=== PATIENT | female | born 1970 | race Caucasian/White ===

== ENCOUNTER 2016-11-24 13:11 | Emergency (ER) | payer OTHER ==
[~2016-11-24] VITALS: Ht 167.6 cm; Wt 68.2 kg
[~2016-11-24 13:11] MED LIST: ATRV10T PO; CITA20TA11 PO; LEVO100T6 PO
[2016-11-24 13:12] VITALS: BP 158/100; PULSE 61; RESP 16; O2SAT 100
--- NOTE | 2016-11-24 13:56 | DRSVH ---
PROCEDURE: X-RAY CHEST, TWO VIEWS ([id number]) INDICATIONS: arm tightness TECHNIQUE: 2 views of the chest were acquired. COMPARISON: None. FINDINGS: Surgical changes and devices: None. Lungs and pleura: No pleural effusions or pneumothorax. Lungs are clear. Mediastinum: Mediastinal contours are normal. Heart size is normal. Bones and chest wall: No suspicious bony abnormalities. Soft tissues appear unremarkable. IMPRESSION: No radiographic evidence of acute cardiopulmonary pathology. Dictated by: Mike Eaton M.D. on 11/24/2016 at 13:53 Approved by: Mike Eaton M.D. on 11/24/2016 at 13:54
[2016-11-24 14:17] LABS: BASOPHILS % (AUTO) 1.2 % (0-3); EOSINOPHILS % (AUTO) 2.5 % (0-5); MONOCYTES % (AUTO) 13.8 % (4-12); Mean Corpuscular Hemoglobin 32.7 pg (27.0-35.0); Mean Corpuscular Volume 94.8 fL (81-100); NEUTROPHILS % (AUTO) 46.3 % (40-74); Platelet Count 172 bil/L (150-400)
--- NOTE | 2016-11-24 14:28 | ED.REPORT ---
HPI-Chest Pain 40 and Over Date of Service Nov 24, 2016 ED Provider: Miguel Ángel Yoo DO A 46 year old female with a history of palpitations, hypothyroidism and loop recorder and a family history of [place] presents to the ED complaining of left arm tightness. The pt has a history of episodes of palpitations with heart rates up to about 160. She experienced an episode yesterday while running but was not especially concerned. However at approximately 10:00 this morning she noticed a tight, squeezing pressure in her left arm that lasted for two hours. This was accompanied by diaphoresis and occasional shortness of breath. The pt has previously undergone cardiac testing including negative stress echocardiogram in 2013 and negative echocardiogram in 2016. Nursing Notes Stated Complaint: LEFT ARM TIGHTNESS,HEART PALP Chief Complaint: Chest Pain Nursing Notes Reviewed: Yes Allergies: Coded Allergies: No Known Allergies (Unverified , 08/26/15) Scheduled Atorvastatin (Lipitor) 10 Mg Tab 10 MG PO DAILY Citalopram (Citalopram) 20 Mg Tablet 20 MG PO DAILY Levothyroxine (Levothyroxine) 100 Mcg Tablet 100 MCG PO DAILY General Time Seen by MD: 14:13 Chief Complaint Other (Left arm tightness) Hx Obtained From: Patient Arrived By: Walk-in Sudden in Onset?: Yes Onset Occurred: 1 - 4 hours ago Symptom Duration: Since onset Recent Healthcare: Recent doctor visit Similar Sx Previous: No Past Medical History Past Medical History Hypothyroidism Normal stress echo in 09/2012 Normal echo in 2016 Palpitations Past Surgical History None reported Family History Mother had 6 [place], hypertension, and heart disease Mother's first [place] at 38 years old Smoking History Former Smoker Social History Alcohol Use: 1-3 per day Other Social History: Local resident Ambulatory Status Independent Review of Systems Review of Systems Note: Left arm tightness Respiratory: Reports: Shortness of breath Cardiovascular: Reports: Palpitations GI: Denies: Abdominal pain, Vomiting Musculoskeletal: Denies: Back pain, Neck pain Skin: Reports Diaphoresis, Denies Rash Complete sys rev & neg: except as marked. Physical Exam Initial Vital Signs Vital Signs (First) Date Time Temp Pulse Resp B/P Pulse Ox O2 Delivery O2 Flow Rate FiO2 11/24/16 13:12 37 61 16 158/100 100 11/24/16 17:38 Room Air Initial VS: Reviewed General/Constitutional: Awake, Alert Respiratory / Chest: Atraumatic, Breath sounds NL, Breath sounds = bilat, No respiratory distress Cardiovascular: Heart rate NL, Regular rhythm, Heart sounds NL Abdomen: Atraumatic, Soft, Non-tender Neck: Atraumatic, Supple, Full range of motion Back: Atraumatic, Full range of motion Lower Extremity / Pelvis / MS: Atraumatic, Full range of motion Skin: Atraumatic, Color NL, No rash, Warm, Dry Neurologic: Oriented X3, Speech NL, No motor deficits, No sensory deficits Psychiatric: Affect NL, Mood NL Head / Eyes: Atraumatic, Normocephalic, PERRL, EOMI ENT: Atraumatic, Airway patent, Mucous membranes moist Upper Extremity / MS: Atraumatic, Full range of motion Interpretation & Diagnostics Lab Results Interpretation Result Diagram: 11/24/16 1405 11/24/16 1405 Test 11/24/16 14:05 11/24/16 14:07 11/24/16 16:10 White Blood Count 4.1th/mm3 (3.8-10.1) Red Blood Count 4.46mil/mm3 (3.90-5.20) Hemoglobin 14.6g/dL (12.0-15.6) Hematocrit 42.3% (35.0-46.0) Mean Corpuscular Volume 94.8fL (81-100) Mean Corpuscular Hemoglobin 32.7pg (27.0-35.0) Mean Corpuscular Hemoglobin Concent 34.5% (32.0-37.0) Red Cell Distribution Width 11.9% (12.3-15.4) Platelet Count 172bil/L (150-400) Neutrophils (%) (Auto) 46.3% (40-74) Lymphocytes (%) (Auto) 36.0% (14-46) Monocytes (%) (Auto) 13.8% (4-12) Eosinophils (%) (Auto) 2.5% (0-5) Basophils (%) (Auto) 1.2% (0-3) Sodium Level 138mEq/L (134-144) Potassium Level 3.9mEq/L (3.5-5.2) Chloride Level 102mEq/L (97-108) Carbon Dioxide Level 18mmol/L (18-29) Blood Urea Nitrogen 13mg/dL (6-24) Creatinine 0.65mg/dL (0.57-1.00) Estimat Glomerular Filtration Rate 141mL/min (>59) Glucose Level 107mg/dL (60-99) Calcium Level 8.7mg/dL (8.5-10.1) Magnesium Level 2.1mg/dL (1.6-2.6) Total Bilirubin 0.6mg/dL (0.0-1.2) Aspartate Amino Transf (AST/SGOT) 16U/L (0-50) Alanine Aminotransferase (ALT/SGPT) 12U/L (0-32) Alkaline Phosphatase 64U/L (25-150) Total Protein 7.2g/dL (6.4-8.4) Albumin 4.1g/dL (3.4-5.0) Hold Urine Received (Received) Troponin T < 0.010ug/L (0.0-0.011) ECG Interpretation ECG Interpretation: normal sinus rhythm with a rate of 57 anterior infarct, old Time: 13:28 Interpreted by: ED physician X-Ray Chest Interpretation Chest Xray Interpretation: IMPRESSION: No radiographic evidence of acute cardiopulmonary pathology. Dictated by: Mike Eaton M.D. on 11/24/2016 at 13:53 Approved by: Mike Eaton M.D. on 11/24/2016 at 13:54 Interpretation / Wet Read by: Interpret - Radiologist Re-Eval/Medical Decision Med Decision/Clinical Course Isolated arm pain without particular cardiopulmonary symptoms. EKG reassuring, serial troponins negative. Heart score of 2. Discussed with patient's primary social professionals who agrees to help hold the patient up. Recommend outpatient aspirin until seen by cardiology. Return precautions given. Source of Hx: Old records Time of Eval: 15:46 Patient Status: Condition improved Re-Evaluation/Progress Note: Pt rechecked, who is comfortable. Radiology results are discussed. Time of Eval: 16:53 Patient Status: Condition improved Re-Evaluation/Progress Note: Pt rechecked, who is comfortable. Lab results, diagnosis and plan for discharge are discussed. The pt understands and agrees with the plan. All questions are addressed at this time. Consultation : Referral / Consult Name: Alfredo Seals MD Consulted With: Cardiology Call Returned at: 16:47 Chummer: Agrees with eval, Agrees with plan Note: Consulted with Dr. Seals, pt's social professionals, regarding pt's case. Dr. Seals agrees with the evaluation and plan for discharge and requests that the pt send interrogation of the loop recorder. Counseled Regarding: Diagnosis, Lab results, Need for follow-up, When/why to return to ED Discharge & Departure Primary Impression: Arm pain, left Disposition: Home Discharge Condition All VS Reviewed: Yes Condition: Stable Patient Instructions: Angina (ED) Additional Instructions: Thank you for entrusting us with your care. Your evaluation was reassuring and no acute cause for your symptoms was found. Your social professionals was contacted and requests that you send a interrogation of your loop recorder. Also he would like to see you soon. Take a baby aspirin daily until seen by your social professionals. Call your social professionals to arrange a follow up appointment in the next several days. Return to the emergency department if you develop any new or worsening symptoms. Referrals: Cely Chance ND (PCP) Scribe Attestation Portions of this note were transcribed by Reggie Sol. I, Dr. Yoo personally performed the history, physical exam and medical decision-making; I reviewed and confirmed the accuracy of the information in the transcribed note. copies to: Cely Chance ND, Timothy S DO Nov 24, 2016 14:27 REGGIE SOL Nov 24, 2016 14:38
[2016-11-24 14:52] LABS: TROPONIN T < 0.010 ug/L (0.0-0.011)
[2016-11-24 15:03] LABS: Magnesium 2.1 mg/dL (1.6-2.6)
[2016-11-24 17:38] VITALS: BP 127/88; PULSE 52; RESP 16; O2SAT 100
== END 2016-11-24 17:38 | disposition home or self-care (01) ==
LOC: SED 13:11
DX: M79.602 Pain in left arm (principal); E03.9 Hypothyroidism, unspecified; R00.2 Palpitations; Z87.891 Personal history of nicotine dependence

== ENCOUNTER 2016-12-03 01:16 | Day surgery (SDC) | payer OTHER ==
[2016-12-03] VITALS (12 sets, daily range): BP systolic 118–147; BP diastolic 68–91; PULSE 54–59; RESP 11–16; O2SAT 95–99
[~2016-12-03] VITALS: Ht 167.6 cm; Wt 69.7 kg
[~2016-12-03 01:16] MED LIST changes: -ATRV10T PO
[2016-12-03] MEDS ORDERED: 0.9% Sodium Chloride 1,000 ML IV SCH (07:05)
--- NOTE | 2016-12-03 11:30 | NUR ---
ADMISSION NOTE FEMALE PT ADMITTED FOR PACEMAKER INSERTION. DISCUSSED PLAN OF CARE WITH PT AND . SEE ADMIT AND FLOW SHEET
[2016-12-03 12:28] LABS: BASOPHILS % (AUTO) 1.6 % (0-3); EOSINOPHILS % (AUTO) 1.6 % (0-5); MONOCYTES % (AUTO) 12.1 % (4-12); Mean Corpuscular Hemoglobin 32.9 pg (27.0-35.0); Mean Corpuscular Volume 94.8 fL (81-100); NEUTROPHILS % (AUTO) 47.4 % (40-74); Platelet Count 190 bil/L (150-400)
[2016-12-03 12:58] LABS: INR 0.96 ratio
[2016-12-03] MEDS ORDERED: CeFAZolin Inj 2 GM in IV Premix 1 EACH IV SCH (13:00)
[2016-12-03] MEDS ORDERED: Bupivacaine-MPF 0.5% 30 mL Inj ONE (14:09)
[2016-12-03] MEDS ORDERED: Heparin 10,000 Unit/1,000 mL NS Premix IV ONE (14:09)
[2016-12-03] MEDS ORDERED: fentaNYL-PF 50 mCg/mL 2 mL Inj ONE ×2 (14:09→15:20)
[2016-12-03] MEDS ORDERED: 0.9% Sodium Chloride 250 ML ONE (14:10)
[2016-12-03] MEDS: 0.9% Sodium Chloride 1,000 ML IV SCH (15:37)
[2016-12-03] MEDS ORDERED: Ondansetron 2 mg/mL 2 mL Inj IVPUSH PRN (15:40)
[2016-12-03] MEDS ORDERED: HYDROcodone-APAP 5-325 mg Tablet PO PRN (15:40)
--- NOTE | 2016-12-03 17:15 | DRSVH ---
PROCEDURE: X-RAY CHEST ONE VIEW, PORTABLE ([id number]) INDICATIONS: For new leads placed TECHNIQUE: One view of the chest was acquired. COMPARISON: [facility], CR, XR CHEST 2VW, 11/24/2016, 13:35. FINDINGS: Surgical changes and devices: New dual-lead cardiac pacer is noted. Lungs and pleura: No pleural effusions or pneumothorax. Lungs are clear. Mediastinum: Mediastinal contours appear normal. Heart size is normal. Bones and chest wall: No suspicious bony lesions. Overlying soft tissues appear unremarkable. IMPRESSION: No pneumothorax after new lead placement. Dictated by: Kalee Alcaraz M.D. on 12/03/2016 at 17:13 Approved by: Kalee Alcaraz M.D. on 12/03/2016 at 17:13
--- NOTE | 2016-12-03 18:00 | NUR ---
Pt transferred to [facility] room 2030. Pt's VSS, Lt upper chest dressing CDI with no bleeding/hematoma noted. Report and pt handoff given to Ludwin MEJIA. Addendum: 12/03/16 at 2300 by LUDWIN MCLAUGHLIN RN Clarification- pt Transferred to [facility] [id number]
--- NOTE | 2016-12-03 18:30 | NUR ---
Transfer to [facility] Report received from Terry Veloz/ROBERTO in [facility]. Pt brought up to unit in a bed around 1830. No signs of bleeding or hematoma at incision site. Pt oriented to unit, room and call light. Pt reports pain 5/10 at site and Nausea. Administered Hydrocodone and IV Zofran as ordered. Pain and Nausea relieved. Pt updated with plan of care, board updated. Pt strong and steady when on feet - continuing as SBA. Sling in place, Tele attached : APaced 55, instructed to use call light for needs.
--- NOTE | 2016-12-03 19:35 | OP ---
[address] [address] OPERATIVE REPORT PATIENT: XANDER AGUILERA : 1970 MR#: [id number] ADMIT: 12/03/2016 JOB ID: [id number] DATE OF SURGERY: 12/03/2016 PREOPERATIVE DIAGNOSIS(ES): 1. Intermittent complete heart block. 2. Syncope. POSTOPERATIVE DIAGNOSIS(ES): 1. Intermittent complete heart block. 2. Syncope. PROCEDURES PERFORMED: 1. Dual-chamber pacemaker implantation. 2. Fluoroscopy. 3. Implantable loop recorder explantation. SURGEON: Twister Tender Paper: Alferdo Seals MD, electrophysiology attending ASSESSMENT: Jose Raul Blas IMPLANTED DEVICES: 1. [employer] pulse generator, model ZZ1136, serial number [id number]. 2. RV lead [employer] LPA 1200M, 46 cm, serial number [id number]. 3. RV lead [employer], LPA 84342P, 52 cm, serial number [id number]. ANESTHESIA: Bolus dosing of Versed and fentanyl was used for an appropriate level of sedation. INDICATION: The patient is a pleasant 46-year-old woman with a structurally normal heart who had syncope and ultimately underwent loop recorder implantation a year and a half ago. Ultimately she had another syncopal episode with the loop recorder in place and a 57 second asystolic arrest was noted during which she had syncope. She started with intermittent heart block and then had sinus arrest for a total of 57 seconds. After discussion of the risks and benefits of pacemaker implantation, she opted to proceed. PROCEDURE DESCRIPTION: Following informed consent, the patient was taken to the EP laboratory in the fasting, nonsedated state, where she was prepped and draped in the usual sterile fashion. The left infraclavicular region was infiltrated with 40 mL of a 50/50 mixture of bupivacaine and lidocaine. Once adequate anesthesia had been achieved, a 3 cm transverse incision was performed 2 cm below the left clavicle. Dissection was carried to pectoralis fascia. A pocket was fashioned using a combination of electrocautery and blunt dissection. Once adequate hemostasis had been achieved access was gotten to the left axillary vein over the first rib with a micropuncture needle twice to deploy two 0.035, 3 mm J guidewires. Over the first of these an 8-Kosovan tear-away sheath was advanced. Once it was removed, an active fixation lead was advanced to the RV outflow tract and ultimately the RV apex. The lead was affixed in position using its associated active fixation screw. It was connected to the external analyzer and demonstrated appropriately sensed R waves, impedance, and capture threshold. The lead was checked to 10 V and there was no evidence of diaphragmatic stimulation. Attention was now paid to the right atrial lead. Over the other previously deployed J guidewire, another 8-Kosovan tear-away sheath was advanced. Once the guidewire was removed, the active fixation lead was advanced to the right atrial appendage. It was affixed in position using its associated fixation screw. It was connected to the external analyzer and demonstrated appropriately sensed P waves, impedance, and capture threshold. It was checked to 10 V and there was no evidence of diaphragmatic stimulation. Once the position and redundancy of both leads had been confirmed in multiple fluoroscopic views, the leads were anchored to the prepectoralis fascia using their associated anchoring sleeves and 2-0 Ethibond sutures. The pocket was then copiously irrigated with antibiotic solution. The leads were connected to a generator. The generator system was placed in the pocket and was affixed to the floor of the pocket using 1-0 Ti-Cron suture. The incision was then closed with running layers of absorbable suture. The wound was dressed with skin adhesive. At the end of the procedure, the needle, sponge, and instrument counts were all correct. The left inframammary ILR site was then infiltrated with local anesthetic and a 0.5 cm incision was made the loop recorder was removed from its capsule. COMPLICATIONS: None. ESTIMATED BLOOD LOSS: Negligible. DEVICE MEASURED DATA: 1. Right atrial lead 3.4 mV, 600 ohms 1 V at 0.4 msec. 2. RV lead 5.8 mV, 640 ohms, 0.75 V at 0.4 msec. FINAL PROGRAM PARAMETERS: DDD is 55-130 beats per minute with VIP on. IMPRESSION: Successful dual-chamber pacemaker implantation and loop recorder removal. PLAN: 1. Stat portable chest x-ray. 2. PA and lateral chest x-ray. 3. Device interrogation in the morning. 4. IV Ancef through tomorrow. 5. Keflex x7 days. 6. Wound check in one week. ATTENDING STATEMENT: Alfredo Seals MD, electrophysiology attending, was present for and supervised/performed all aspects of this procedure.
[2016-12-03] MEDS: CeFAZolin Inj 1 GM in IV Premix 1 EACH IV SCH (21:54)
[2016-12-04 00:03] VITALS: BP 133/76; PULSE 55; RESP 16; O2SAT 98
[2016-12-04] MEDS: 0.9% Sodium Chloride 1,000 ML IV SCH (00:56)
[2016-12-04 04:44] VITALS: BP 105/65; PULSE 55; RESP 18; O2SAT 97
--- NOTE | 2016-12-04 04:54 | NUR ---
incision site pacer dressing CDI; Pt continues to use Left arm sling for pacer precaution. This RN felt firmer area just below the incision line on change of shift. no visible bruise. Tele Apaced at 55. Nina, CCU charge nurse to assess. 5lb sand bag applied [id number]. Area is now softer. Pt reported 5/10 incision soreness. Pt had nausea and she's thinking maybe it's from hydrocodone. agreed to take some tylenol. Pt reported no pain at this time. No other c/o nausea. VSS. hourly rounding done.
[2016-12-04 05:49] VITALS: PULSE 55
[2016-12-04] MEDS: CeFAZolin Inj 1 GM in IV Premix 1 EACH IV SCH (06:29)
[2016-12-04 08:00] VITALS: PULSE 57
--- NOTE | 2016-12-04 09:04 | PCM.DIMED ---
Discharge Instructions Date of Service Dec 04, 2016 Dates of Hospitalization Discharge Diagnosis Discharge Diagnosis Syncope Cardiac Asystole Diet Discharge Diet: No restrictions Activity Discharge Activity: Other (Keep incision dry one day. Do not extend left elbow high above shoulder for one month. Do not lift, push or pull more than 10 lbs with the left arm for one month.) Call your provider Call your provider for: Fever or Chills, Bleeding, Excessive diarrhea Patient Instructions Follow-up in: 1 week Mid-level Provider (F9): Randy Hawley PA-C Follow-up with Mid-level in: 6 weeks Randy Hawley PA-C Dec 04, 2016 09:04
[2016-12-04 09:07] VITALS: BP 126/81; PULSE 57; RESP 18; O2SAT 97
[2016-12-04] MEDS ORDERED: CEPH500C PO (09:11)
--- NOTE | 2016-12-04 11:10 | DRSVH ---
PROCEDURE: X-RAY CHEST, TWO VIEWS ([id number]) INDICATIONS: For new lead placement TECHNIQUE: 2 views of the chest were acquired. COMPARISON: [facility], CR, XR CHEST 2VW, 11/24/2016, 13:35. [facility], CR, XR CHEST 1VW (PORTABLE), 12/03/2016, 16:25. FINDINGS: Surgical changes and devices: New dual chamber left cardiac pacemaker. Lungs and pleura: No pleural effusions or pneumothorax. Lungs are clear. Mediastinum: Mediastinal contours are normal. Heart size is normal. Bones and chest wall: No suspicious bony abnormalities. Soft tissues appear unremarkable. IMPRESSION: New left-sided dual-lead cardiac pacer. No pneumothorax. Dictated by: Ian DANIEL Interpreted: Mike Eaton MD on 12/04/2016 at 8:20 Approved by: Mike Eaton M.D. on 12/04/2016 at 11:08
--- NOTE | 2016-12-04 12:04 | NUR ---
Discharge Pt d/c home as ordered. Removed steri strips and cleaned small incision with chlorhexidine, applied surgical glue as instructed by cardiology. Glue dried well. Removed both IV's, catheters intact, no bleeding. Provided pt with d/c paperwork and instructions, including appt times. Pt waited for to arrive. Found room empty at approx 12 noon.
--- NOTE | 2016-12-06 14:01 | DIS ---
[address] [address] DISCHARGE SUMMARY PATIENT: XANDER AGUILERA : 1970 MR#: [id number] ADMIT: 12/03/2016 JOB ID: [id number] DIS: 12/04/2016 REASON FOR ADMISSION: Pacemaker implant. CHIEF COMPLAINT: Profound syncope. BRIEF HISTORY: The patient is a very pleasant, 46-year-old, healthy and athletic woman with a history of infrequent but profound syncope for which noninvasive monitoring was unrevealing. She received an implantable ECG recorder 15 months ago but had no recurrence of syncope until the evening of November 29, 2016. She was at home in her kitchen when she felt symptoms of sudden lightheadedness and she quickly laid down on a nearby couch. She remembers later struggling to wake up and then felt very groggy for a period of time afterward. Her son found her on the couch as she was regaining consciousness and he used the recorder activator to save that ECG record. Interrogation of the device the following day in the cardiology clinic revealed sinus rhythm at 60 BPM followed by three nonconducted P waves and then complete atrial and ventricular standstill for 59 seconds. Finally, after a few junctional escaped beats, she regained sinus rhythm at 75 BPM and had no further recurrence of syncope or near-syncope. The patient was scheduled for pacemaker implant at the [facility]st [facility] which was on December 03, 2016. She remained free of recurrent symptoms prior to the implant. COURSE IN HOSPITAL: The patient was admitted to the [facility] and taken to the cardiac cath lab manager, where she received the dual-chamber pacemaker without incident. She was transferred back to the [facility] for recovery from sedation and then taken up to the third floor [facility] for overnight observation and telemetry monitoring. She did well overnight and had no recurrence of the syncope or near syncope, and the pacemaker appeared to be performing normally on the telemetry monitoring. In the morning, the device was interrogated and good atrial and ventricular capture and sensing thresholds were found. Chest x-ray showed good lead positions and no pneumothorax. The device site was closed and dry and there was no hematoma or sign of infection. Because the recording and symptoms of her need for pacing appeared to be infrequent and neurocardiogenic in nature, the device was programmed with a pacing rate of 40 beats per minute, with a hysteresis rate allowing sinus rates as low as 35 BPM before pacing at 40 beats per minute. If this should occur she would then receive 3 minutes of pacing at 90 BPM to ameliorate symptoms of hypotension that may accompany her asystolic events. With ventricular pacing at 3 V or higher, it was noted she had some anterior chest wall stimulation in the epigastric area, but this was not problematic to her at normal pacing output voltages. DISPOSITION: The patient was discharged home in good condition with a followup appointment at the [facility] office in one week. She was asked not to extend her left elbow above her shoulder for one month, and not to lift, push or pull more than 10 pounds with the left arm for one month. She will keep the area dry today, but then may shower starting tomorrow. The small incision where the ECG loop recorder was explanted was recleaned with ChloraPrep and then Dermabond was applied and allowed to dry. She will keep this area also dry for one day. 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 FINAL DIAGNOSES: 1. Profound syncope, probably of neurocardiogenic origin. 2. History of hypothyroidism. CC: Primary doctor.
== END 2016-12-04 11:45 | disposition home or self-care (01) ==
LOC: SOUO 01:16 → EDSTATUS 14:48 → SOUO 18:09 → MPC 18:09 → SOUO 12-04 11:45
PROVIDERS: ATTEND Internal Medicine Cardiovascular Disease
DX: I44.2 Atrioventricular block, complete (principal); R55 Syncope and collapse; Z87.891 Personal history of nicotine dependence; Z86.74 Personal history of sudden cardiac arrest; E03.9 Hypothyroidism, unspecified
CPT/HCPCS: 33208; 33284; 36415; 71010; 71020; 80048; 84703; 85025; 85610; 93005; 99152; 99153; C1769; C1785; C1892; C1898; J0690; J1644; J2250; J2405; J3010; J7050